=== PATIENT | female | born 1970 | race Caucasian/White ===

== ENCOUNTER → 2020-12-31 | Outpatient (CLI) | payer OTHER ==
[~2020-12-31] MED LIST: ADDERALL 20 MG20 MG PO; ALPRAZOLAM1 MG PO; ASA81BEC PO; ATIVAN1 M1 PO; ATORVASTATIN CA10 MG PO; CHANTIX1 MG PO; ESCITALOPRAM OX20 MG PO; NITROGLYCERIN0.4 MG SUBLING; NORVASC5 MG PO; PROTONIX40 M2 PO; RIZATRIPTAN5 MG PO; SPIRONOLACTONE100 M1 PO; ZIPRASIDONE HCL20 M1 PO
[2020-12-31 11:19] LABS: HEMATOCRIT 48.2 % (37.0-47.0); HEMOGLOBIN 16.5 gm/dL (12.0-15.0); MCH 32.3 pg (26.0-34.0); MCHC 34.2 g/dL (28.0-37.0); MCV 94.4 fL (80.0-100.0); RBC 5.1 mil/uL (4.20-5.00); RDW 13.4 % (10.5-14.5); URINE BILIRUBIN NEGATIVE (Negative); URINE BLOOD NEGATIVE (Negative); URINE CLARITY SL CLOUDY; URINE COLOR YELLOW; URINE GLUCOSE-RANDOM* 2+ (Negative); URINE KETONES TRACE (Negative); URINE LEUKOCYTES-REFLEX NEGATIVE (Negative); URINE NITRITE-REFLEX NEGATIVE (Negative); URINE PROTEIN (DIPSTICK) TRACE (Negative); URINE SPECIFIC GRAVITY >= 1.030 (1.005-1.035); URINE UROBILINOGEN 0.2 E.U./dl (0.2-1.0); WBC 11.9 thou/uL (4.0-11.0)
[2020-12-31 11:29] LABS: INR 0.99; PROTIME 10.8 Seconds (10.5-12.1)
[2020-12-31 11:31] LABS: ALBUMIN 3.9 g/dL (3.4-5.0); CALCIUM 9.5 mg/dL (8.5-10.1); CREATININE 1.9 mg/dL (0.6-1.0); POTASSIUM 4.1 mmol/L (3.5-5.1); TOTAL BILIRUBIN 0.5 mg/dL (0.2-1.0); TOTAL PROTEIN 7.4 g/dL (6.4-8.2)
--- NOTE | 2020-12-31 11:50 | EKG ---
[place] [address] [facility] [employer] [place] [address] ELECTROCARDIOGRAM REPORT Name: STEFAN KIMBALL [facility]: [facility] [id number] Admission: 12/31/20 Attend Phys: Antonio Fuentes MD Discharge: Date of : 70 Report #: [id number] [facility] Test Date: 2020-12-31 Test Time: 11:07:26 Pat Name: STEFAN KIMBALL Department: Room: Gender: F [employer] Caretaker: SUHAIL MOTA : 1970 Requested By: Antonio Fuentes Order Number: [id number] : Woo Weston Measurements Intervals [place] Rate: 133 P: 23 MN: 139 QRS: -35 QRSD: 72 T: 42 QT: 291 QTc: 433 Interpretive Statements Sinus tachycardia Probable left atrial enlargement Left axis deviation Abnormal R-wave progression, late transition No previous ECG available for comparison Electronically Signed On 12-31-2020 11:50:38 CDT by Woo Weston [email or web address] <ELECTRONICALLY SIGNED> By: Woo Weston MD, [facility] 12/31/20 1150 1107 1107 Woo Weston MD, FACC /EPI
== END ==
LOC: PAC 10:27
PROVIDERS: ATTEND Orthopaedic Surgery
DX: Z01.818 Encounter for other preprocedural examination (principal); I51.7 Cardiomegaly; R00.0 Tachycardia, unspecified; M17.11 Unilateral primary osteoarthritis, right knee; Z96.651 Presence of right artificial knee joint

== ENCOUNTER → 2021-01-05 | Outpatient (CLI) | payer OTHER ==
[~2021-01-05] MED LIST changes: +DILAUDID 2 MG TA2 MG PO; +MS CONTIN15 MG PO; +TRI-BUFFERED A325 M1 PO
== END ==
LOC: LAB 10:01
PROVIDERS: Student in an Organized Health Care Education/Training Program; ATTEND Orthopaedic Surgery
DX: Z01.812 Encounter for preprocedural laboratory examination (principal); Z20.822 Contact with and (suspected) exposure to COVID-19

== ENCOUNTER 2021-01-07 06:25 | Day surgery (SDC) | payer OTHER ==
[~2021-01-07] VITALS: Ht 160 cm; Wt 92.1 kg
[~2021-01-07 06:25] MED LIST changes: -DILAUDID 2 MG TA2 MG PO; -MS CONTIN15 MG PO; -TRI-BUFFERED A325 M1 PO
[2021-01-07 06:55] VITALS: BP 121/86
[2021-01-07 10:59] VITALS: BP 128/79
--- NOTE | 2021-01-07 12:09 | NUR ---
ASSUMED PT CARE AT 1030 FROM PACU. PT IS ALERT & ORIENTED X4. PT HAS IV SITE ON R FA 20 GAUGE SALINE LOCKED. PT IS UP WITH ASSIST X1 TO THE BEDSIDE COMMODE. PT HAS [employer]ARE, [employer], [employer] AND SCD. PT IS ON ROOM AIR. PT C/O OF PAIN. AWAITING FOR MEDICATIONS TO BE VERIFIED. PT FRIEND AT THE BEDSIDE. FINISHED ADMISSION. WILL CONTINUE TO MONITOR PT. FOLLOW POC.
[2021-01-07] MEDS ORDERED: TRI-BUFFERED A325 M1 PO (14:07)
[2021-01-07] MEDS ORDERED: DILAUDID 2 MG TA2 MG PO (14:07)
[2021-01-07] MEDS ORDERED: MS CONTIN15 MG PO (14:08)
--- NOTE | 2021-01-07 14:11 | O ---
[facility] [place] [address] OPERATIVE REPORT Name: STEFAN KIMBALL Room #: 442-P [facility] M.R.#: [id number] Admission: 01/07/21 Attend Phys: Antonio Fuentes MD Discharge: Date of : 70 Report #: [id number] THIS REPORT FOR: cc: Tabitha De Luna NP, Elizabeth NP Abraham, Scott M. MD ~ DATE OF SERVICE: 01/07/2021 PREOPERATIVE DIAGNOSIS: Right knee valgus osteoarthritis. POSTOPERATIVE DIAGNOSIS: Right knee valgus osteoarthritis. PROCEDURE: Right total knee arthroplasty using Navio robotic student assistant. SURGEON: Antonio Fuentes MD ANESTHESIA: LMA with adductor canal block. IMPLANTS: A [employer] size 5 Journey II BCS Oxinium femur, size 4 tibia, size 10 constrained polyethylene and size 32 patella. TOURNIQUET TIME: 48 minutes. ESTIMATED BLOOD LOSS: 25 mL COMPLICATIONS: None. SPECIMENS: None. CONDITION UPON LEAVING THE OR: Stable. INDICATIONS FOR PROCEDURE: The patient is a 50-year-old female with right knee valgus osteoarthritis. She failed conservative measures for this and after discussion with her, she elected for right total knee arthroplasty. DESCRIPTION OF PROCEDURE: Risks, benefits, alternatives, complications were discussed in detail with the patient including but not limited to risk of anesthesia, risk of damage to nerves, arteries, blood vessels, risk for infection, bleeding, risk for continued knee pain, need for reoperation. Informed consent was obtained from the patient. Right knee was appropriately marked in the preoperative holding area. IV clindamycin was given for preoperative antibiotics. She was brought to the operating room and placed in supine position on the operating table. LMA anesthesia was induced without complication. Tourniquet was placed on the right thigh. Right lower extremity was prepped and draped in normal sterile fashion. Timeout was performed properly identifying the patient and procedure as well as the instrumentation. [address] [address] OPERATIVE REPORT Name: STEFAN KIMBALL Room #: 442-P [facility] M.R.#: [id number] Admission: 01/07/21 Attend Phys: Antonio Fuentes MD Discharge: Date of : 70 Report #: [id number] All in the operating room in agreement. Right lower extremity was exsanguinated and tourniquet inflated. Tourniquet time was 48 minutes. Standard midline approach to the knee was made with 10 blade through the skin. Dissection was taken down sharply to the fascia and deep flaps were developed medially and laterally. Fresh 10 blade was used to make a medial parapatellar arthrotomy and the knee was inspected. There was severe lateral compartment osteoarthritis with moderate patellofemoral compartment osteoarthritis. ACL and PCL were removed sharply. Reference pins were placed in the femur and the tibia. The knee was then digitally mapped using the FastCall robotic system. Intraoperative plan was made. We sized the size 5 femur, size 4 tibia and a 10 spacer. After acceptance of the intraoperative plan, the distal femoral cut was made with Navio bur. Distal femoral cutting block was pinned in place and chamfer cuts were made. Attention was turned to the tibia. Remainder of the menisci removed with Bovie cautery. Tibial resection guide was pinned in place using Navio for placement and tibial resection was made. Flexion and extension gaps were checked and found to have good balance laterally in flexion and extension. Medially, she was slightly more loose than she was laterally but that is expected given her underlying valgus deformity. It was felt we can make up for this with a constrained implant. Tibia sized, found to be a size 4. Size 4 tibial trial was placed, pinned and punched. Size 5 femoral trial was placed, box cut was made. This was then trialed with a size 10 polyethylene. Size 10 polyethylene demonstrated 1 mm laxity laterally throughout range of motion of the knee that was noted to be up 2-3 mm medially. Again, it was felt we can make up for this with a constrained implant. A 9 mm of bone was resected from the posterior surface of the patella and a size 32 patellar trial button was placed. The knee was taken through range of motion, found to be stable, found to have good patellar tracking. Trial was removed. Bone ends were thoroughly irrigated with normal saline. A final size ____ Oxinium femur and a size 32 patella were cemented in place using standard cementation techniques. While the cement cured, a periarticular injection consisting of morphine, ropivacaine, epinephrine, Toradol was placed around the knee joint capsule. After the cement cured, the tourniquet was deflated. Hemostasis was obtained with Bovie cautery. A final size 10 constrained polyethylene was placed. A gram of vancomycin was placed deep in the joint. Fascia was closed with 0 Vicryl. Skin was closed with 2-0 Vicryl, skin staple and a MCKAYLA dressing was applied. The patient tolerated this procedure well and went to recovery room under care of anesthesia postoperatively. <ELECTRONICALLY SIGNED> By: Antonio Fuentes MD 01/07/21 1411 [id number] Antonio Fuentes MD /nt
[2021-01-07 14:38] VITALS: BP 128/79
--- NOTE | 2021-01-07 14:48 | NUR ---
INITIAL ASSESSMENT/DISCHARGE NOTE: SW was notified by physical therapy that pt is ready to discharge home today and needs a roller walker. SW reviewed chart and spoke with nursing. Pt had right TKA this morning and has a discharge summary. JONAH spoke with pt via phone to discuss discharge plan. Introduced role of SW. Pt is alert/orientated x 4. Pt reports she lives at home and is normally independent with ADLs. SW discussed need for roller walker. Pt verbalized understanding and is wanting to discharge home this afternoon. Options for DME companies provided. No preference voiced. JONAH faxed pt's info to [facility] and [facility] for review. Spoke with Spencer with [facility], who states they could have the walker delivered to the hospital by 1700 this evening. JONAH spoke with Evert at [facility], who states that they need 24 hours notice. JONAH updated pt via phone, who states that she will use her mother's walker this evening. Pt has steps to get into her home. Pt would liek a roller walker to be delivered to her home. JONAH confirmed pt's home address and phone number. JONAH updated [facility] liaison. [facility] to contact pt and coordinate the delivery of her roller walker. Script obtained and faxed to [facility]. Pt's family to provide transportation home. No additional SW needs identified at this time, but is available to assist ashould needs arise.
--- NOTE | 2021-01-08 16:15 | NUR ---
JONAH received call from Sanjuana at [facility] that they no longer accept pt's insurance. JONAH faxed referral to [facility] and notified Evert of new referral. [facility] to contact pt to coordinate the delivery of her walker.
== END 2021-01-07 15:43 | disposition home or self-care (01) ==
LOC: OR → TBA 06:25 → OR 09:49 → 4S 10:55 → OR 11:17
PROVIDERS: ATTEND Orthopaedic Surgery
DX: M17.11 Unilateral primary osteoarthritis, right knee (principal); M25.561 Pain in right knee; I12.9 Hypertensive chronic kidney disease with stage 1 through stage 4 chronic kidney disease, or unspecified chronic kidney disease; N18.30 Chronic kidney disease, stage 3 unspecified; E78.5 Hyperlipidemia, unspecified; F32.9 Major depressive disorder, single episode, unspecified; F41.9 Anxiety disorder, unspecified; K21.9 Gastro-esophageal reflux disease without esophagitis; Z98.890 Other specified postprocedural states; Z79.899 Other long term (current) drug therapy; Z87.891 Personal history of nicotine dependence; Z90.49 Acquired absence of other specified parts of digestive tract; Z90.710 Acquired absence of both cervix and uterus; Z88.0 Allergy status to penicillin; Z88.8 Allergy status to other drugs, medicaments and biological substances
CPT/HCPCS: 50010; 50101; 50415; 50954; 51130; 51225; 51320; 51412; 52001; 52282; 53000; 53078; 53365; 56527; 56528; 57103; 57110; 57127; 57180; 64039; 70005